=== PATIENT | female | born 1995 ===

== ENCOUNTER 2017-08-12 08:27 | Day surgery (SDC) | payer OTHER ==
[~2017-08-12] VITALS: Ht 167.6 cm; Wt 46.8 kg
[2017-08-12 08:48] VITALS: BP 127/80; PULSE 98; RESP 20; TEMP 97.6; O2SAT 100
[2017-08-12] MEDS ORDERED: NORT1TAB PO (08:50)
[2017-08-12] MEDS ORDERED: SODIUM CHLOR 0.9% 1000 ML INJ 1,000 ML IV SCH (09:00)
[2017-08-12 09:22] LABS: AUTOMATED NEUTROPHIL # 5.2 TH/MM3 (1.8-7.7); BASOPHIL # 0.1 TH/MM3 (0-0.2); BASOPHIL % 0.8 % (0.0-2.0); EOSINOPHIL # 0.3 TH/MM3 (0-0.4); EOSINOPHIL % 3.8 % (0.0-4.0); HEMATOCRIT 35.5 % (35.0-46.0); HEMOGLOBIN 12.1 GM/DL (11.6-15.3); LYMPH % 29.1 % (9.0-44.0); LYMPHOCYTE # 2.5 TH/MM3 (1.0-4.8); MEAN CELL VOLUME 84.2 FL (80.0-100.0); MEAN CORPUSCULAR HEMOGLOBIN 28.7 PG (27.0-34.0); MEAN CORPUSCULAR HGB CONC 34.1 % (32.0-36.0); MEAN PLATELET VOLUME 7.5 FL (7.0-11.0); MONO % 6.5 % (0.0-8.0); MONOCYTE # 0.6 TH/MM3 (0-0.9); NEUT % 59.8 % (16.0-70.0); PLATELET COUNT 357 TH/MM3 (150-450); RED BLOOD COUNT 4.21 MIL/MM3 (4.00-5.30); RED CELL DISTRIBUTION WIDTH 12.9 % (11.6-17.2); WHITE BLOOD COUNT 8.7 TH/MM3 (4.0-11.0)
[2017-08-12 09:30] LABS: PROTHROMBIN TIME - PATIENT 9.9 SEC (9.8-11.6)
[2017-08-12 09:38] LABS: BICARBONATE 23.5 MEQ/L (21.0-32.0); CALCIUM 9.2 MG/DL (8.5-10.1); CREATININE 0.51 MG/DL (0.50-1.00)
[2017-08-12 11:05] VITALS: BP 111/74; PULSE 75; RESP 20; TEMP 97.8; O2SAT 98
--- NOTE | 2017-08-12 11:19 | PD.RAD ---
Post Procedure Progress Note Procedure Date: Aug 12, 2017 Supervising Radiologist: Alfredo Jimenez Anesthesia: Local Plan of Activity Patient to Unit: ROPU Patient Condition: Good See PACS Report for procedural detail/treatment Alfredo Jimenez MD Aug 12, 2017 11:19
[2017-08-12 12:24] LABS: TOTAL PROTEIN,CSF 23.9 MG/DL (15.0-45.0)
--- NOTE | 2017-08-12 12:43 | RADRPT ---
EXAM DATE/TIME: 08/12/2017 12:03 [place] COMPARISON: No previous studies available for comparison. INDICATIONS : Patient presents with chronic bilateral leg pain in need of lumbar puncture with opening pressure to rule out multiple sclerosis. MEDICAL HISTORY : None SURGICAL HISTORY : Biliteral knee ligament release ENCOUNTER: Initial ACUITY: >1 year PAIN SCORE: 0/10 LUMBAR PUNCTURE TIME: 1056 hours FLUORO TIME: 0.13 minutes ACCESS LEVEL: L2-3 OPENING PRESSURE: 24.5 cm of water CLOSING PRESSURE: Not requested. FLUID: 17 cc of clear CSF was collected and sent to the laboratory for analysis. PROCEDURE : 1. Fluoroscopic guided lumbar puncture. 2. Recording of opening pressure. The risks, benefits and alternatives to the procedure were explained and verbal and written consent w as obtained. The site was prepped in sterile fashion. Full sterile technique was used, including ca p, mask, sterile gloves and gown and a large sterile sheet. Hand hygiene and 2% chlorhexidine and/or betadine/alcohol prep was utilized per protocol for cutaneous antisepsis. The skin and subcutaneous tissues were infiltrated with local anesthetic solution. With fluoroscopic guidance the lumbar thecal sac was punctured at the above level described above and the opening pressure was recorded. The above described fluid was removed without difficulty. The patient tolerated the procedure well and there were no complications. CONCLUSION: Uncomplicated fluoroscopically guided lumbar puncture with pressures as above. Alfredo Jimenez MD on August 12, 2017 at 12:39 Board Certified Radiologist. This report was verified electronically.
[2017-08-12 13:00] VITALS: BP 118/74; PULSE 75; RESP 20; O2SAT 98
[2017-08-12 13:24] LABS: SUPERNATE COLOR TUBE #1 CLEAR (CLEAR); VOLUME TUBE # 1 3.5 ML
[2017-08-12 13:25] LABS: RBC TUBE #1 0 /MM3; WBC TUBE #1 5 /MM3 (0-10)
[2017-08-12 13:29] LABS: CSF LYMPHOCYTES 100 %; CSF NEUTROPHILS 0 %
[2017-08-12 13:32] LABS: CSF LYMPHOCYTES 0 %; CSF NEUTROPHILS 0 %; RBC TUBE #4 12 /MM3; WBC TUBE #4 0 /MM3 (0-10)
[2017-08-15 11:36] LABS: CSF CRYPTOCOCCUS AG CONF ND (NOT DETECTD)
[2017-08-17 19:52] LABS: CSF CRYPTOCOCCUS ANTIGEN NOT DETECTED (NEGATIVE); VDRL CSF NON-REACTIVE (NON-REACTVE)
== END 2017-08-12 13:20 | disposition home or self-care (01) ==
LOC: HROP 08:27 → HRIP 08:30 → HROP 13:20
PROVIDERS: ATTEND Specialist
DX: G35 Multiple sclerosis (principal); G89.29 Other chronic pain; M79.604 Pain in right leg; M79.605 Pain in left leg
CPT/HCPCS: 62270; 77003; 80048; 82040; 82042; 82784; 82945; 83873; 83916; 84157; 85025; 85610; 85730; 86403; 86592; 86618; 87070; 87205; 89051